=== PATIENT | male | born 1995 | race Caucasian/White ===

== ENCOUNTER 2016-11-15 19:40 | Emergency (ER) | payer OTHER ==
[~2016-11-15] VITALS: Ht 177.8 cm; Wt 88.5 kg
[~2016-11-15 19:40] MED LIST: IBUPROFEN 200200 M1; NORCO 5-325 TA1 EACH PO; [UNRECOGNIZED DRUG - REMARK]
[2016-11-15 19:58] VITALS: BP 140/97
[2016-11-15] MEDS ORDERED: IBUPROFEN 600600 M1 PO (21:02)
[2016-11-15] MEDS ORDERED: NORCO 5-325 TA1 EACH PO (21:02)
== END 2016-11-15 20:40 | disposition home or self-care (01) ==
LOC: ER 19:40
DX: S62.336A Displaced fracture of neck of fifth metacarpal bone, right hand, initial encounter for closed fracture (principal); F10.99 Alcohol use, unspecified with unspecified alcohol-induced disorder; Z90.49 Acquired absence of other specified parts of digestive tract; W22.8XXA Striking against or struck by other objects, initial encounter; Y93.89 Activity, other specified; Y92.89 Other specified places as the place of occurrence of the external cause; Y99.8 Other external cause status

== ENCOUNTER 2017-05-24 18:27 | Emergency (ER) | payer OTHER ==
[~2017-05-24] VITALS: Ht 177.8 cm; Wt 95.3 kg
[~2017-05-24 18:27] MED LIST changes: +IBUPROFEN 600600 M1 PO
[2017-05-24 18:29] VITALS: BP 136/95
[2017-05-24] MEDS ORDERED: OSELB75 PO (19:13)
[2017-05-24] MEDS ORDERED: PROMETHAZINE/C118 ML PO (19:13)
== END 2017-05-24 19:21 | disposition home or self-care (01) ==
LOC: ER 18:27
DX: R05 Cough (principal); R50.9 Fever, unspecified; M79.1 Myalgia; Z90.49 Acquired absence of other specified parts of digestive tract

== ENCOUNTER 2018-06-06 19:29 | Emergency (ER) | payer OTHER ==
[~2018-06-06] VITALS: Ht 177.8 cm; Wt 90.7 kg
[~2018-06-06 19:29] MED LIST changes: +OSELB75 PO; +PROMETHAZINE/C118 ML PO
[2018-06-06] MEDS ORDERED: ULTRAM 50MG TAB50 MG PO (20:21)
[2018-06-06 21:02] VITALS: BP 125/90
== END 2018-06-06 20:49 | disposition home or self-care (01) ==
LOC: ER 19:29
DX: M25.531 Pain in right wrist (principal); Z90.49 Acquired absence of other specified parts of digestive tract; W18.39XA Other fall on same level, initial encounter; Y93.89 Activity, other specified; Y92.89 Other specified places as the place of occurrence of the external cause; Y99.8 Other external cause status

== ENCOUNTER 2019-08-02 21:02 | Emergency (ER) | payer OTHER ==
[~2019-08-02] VITALS: Ht 177.8 cm; Wt 90.7 kg
[~2019-08-02 21:02] MED LIST changes: +ULTRAM 50MG TAB50 MG PO
[2019-08-02 21:53] VITALS: BP 129/79
== END 2019-08-02 21:57 | disposition home or self-care (01) ==
LOC: ER 21:02
DX: S81.812A Laceration without foreign body, left lower leg, initial encounter (principal); Z90.49 Acquired absence of other specified parts of digestive tract; W28.XXXA Contact with powered lawn mower, initial encounter; Y93.89 Activity, other specified; Y92.89 Other specified places as the place of occurrence of the external cause; Y99.9 Unspecified external cause status